=== PATIENT | female | born 1965 | race Caucasian/White ===

== ENCOUNTER → 2023-06-30 15:28 | Outpatient (REF) | payer BC, SELFPAY | LOC: WDC 15:28 | PROVIDERS: ATTENDING PHYSICIAN Obstetrics & Gynecology; FAMILY PHYSICIAN Family Medicine | DX: Z12.31 Encounter for screening mammogram for malignant neoplasm of breast (principal) | CPT/HCPCS: 77063; 77067 ==

== ENCOUNTER 2024-03-16 06:39 | Emergency (ER) | payer BC, SELFPAY ==
[2024-03-16 06:40] VITALS: BMI 24.1
[2024-03-16 06:41] VITALS: BP 148/91
[2024-03-16 07:04] VITALS: BP 136/85
--- NOTE | 2024-03-16 07:30 | ED.GENMED ---
History of Present Illness
General
Chief Complaint: Headache
Source: patient
Exam Limitations: none
Time Seen by Provider: 03/16/24 07:15
Nursing documentation reviewed up to this point in time: agreed with
History of Present Illness
History of Present Illness:
58-year-old female with history of migraines presents stating at 1 AM she awakened with one of her typical migraines starting in the posterior aspect of her head and wrapping up and around the top of her head to her right eye. She has photophobia
and nausea but has not vomited. She has maxed out on her migraine medications taking rizatriptan at 1 AM and 3 AM and butyl acetaminophen with caffeine at 2 AM. No recent head injury. she has been in ED before for this and states Toradol and
Compazine helped. feels nauseous but no vomiting and has been drinking well. Denies change in vision.
Past History
Past History
ED Past Medical History: Psychiatric (Anxiety) and Other (Chronic headaches, ulcerative colitis, migraine headaches)
ED Past Surgical History: , Gynecological and Orthopedic
Social History
Tobacco: Non-smoker
Alcohol: Occasional
Drug: None
Personal:
Living: with family
Employment: Employed
Family History
Family History: Hypertension
Review of Systems
Review of Systems
Allergies reviewed?: Yes
All Other Systems: ROS reviewed and negative except as documented in HPI and ROS
Constitutional: Denies fever
Respiratory: Denies trouble breathing
Cardiac: Denies chest pain
ABD/GI: Reports nausea; Denies abdominal pain, vomiting or diarrhea
Musculoskeletal: Reports no symptoms
Skin: Reports no symptoms
Neurological: Reports headache; Denies dizzy, weakness or numbness
Phy Exam
Physical Exam
Physical Exam:
GENERAL: No acute distress. A&Ox3.
CONSTITUTIONAL: Afebrile.
EYES: PERRL, conjunctivae normal
Neck: Supple
ENMT: moist mucus membranes, Pharynx nl
RESPIRATORY: Regular respirations, nonlabored, lungs clear.
CARDIOVASCULAR: Regular rate and rhythm, no murmurs, no rubs.
GI: Soft, nontender, normal BS
MUSCULOSKELETAL: Moves with ease. Well perfused.
SKIN: Warm, dry, pink
PSYCH: Normal mood and affect. Well kept, interactive and appropriate
NEUROLOGIC: Awake, alert and oriented. Cranial nerves II through XII intact. Cerebellum intact. No focal neurological deficits
Course
Orders/Labs/Results
Orders:
Orders
03/16/24 07:29
Diphenhydramine [Benadryl] 25 mg IV NOW STA
Ondansetron Orally Disint [Zofran Odt (Orally Disintegrating)] 4 mg PO NOW STA
Prochlorperazine [Compazine] 10 mg IV NOW STA
03/16/24 07:31
Ketorolac [Toradol] 15 mg IV NOW STA
Vital Signs
Initial and Last Documented VS:
Initial Vital Signs
Temp Pulse Resp BP Pulse Ox
95.3 F L 70 18 148/91 96
03/16/24 06:41 03/16/24 06:41 03/16/24 06:41 03/16/24 06:41 03/16/24 06:41
Last Documented Vital Signs
Temp Pulse Resp BP Pulse Ox
95.3 F L 65 16 135/65 98
03/16/24 06:41 03/16/24 09:03 03/16/24 09:03 03/16/24 09:03 03/16/24 09:00
MDM/Problems Addressed
Differential Diagnosis Includes:
migraine
MDM/Problems Addressed:
58-year-old female with history of migraines presents stating at 1 AM she awakened with one of her typical migraines starting in the posterior aspect of her head and wrapping up and around the top of her head to her right eye. She has photophobia
and nausea but has not vomited. She has maxed out on her migraine medications taking rizatriptan at 1 AM and 3 AM and butyl acetaminophen with caffeine at 2 AM. No recent head injury. she has been in ED before for this and states Toradol and
Compazine helped. feels nauseous but no vomiting and has been drinking well. Denies change in vision.
Neuro exam unremarkable
9:25 a.m.
Pt feeling 'so much better' ambulating in room, wants to go home.
*Critical Care Note
Total Time (30-74mins, 75-104mins- exclusive of procedures): Not Applicable
ED Attending Note
-
Portions of this chart may have been created with voice recognition software.� Occasional wrong word or��sound alike� substitutions may have occurred due to the inherent limitations of voice recognition software.
Discharge Plan
Departure
Patient Disposition: Home (Routine Discharge)
Date of Disposition: 03/16/24
Time of Disposition: 09:31
Patient with high blood pressure during this ER visit?: No
Condition: Good
Discharge Problem:
Headache, migraine
Instructions: Migraines (DC)
Prescriptions:
No Action
rizatriptan [Maxalt] 10 MG tablet
10 mg PO PRN PRN (Reason: migraine symptoms)
mesalamine [Lialda] 1.2 GM tablet,delayed release (DR/EC)
1.2 g PO DAILY
alprazolam 0.5 MG tablet
0.5 mg PO QPM
mupirocin 1 APPLIC ointment
1 applic intranasal BID
sennosides [senna] 1 TABLET tablet
2 tab PO BID 0RF
acetaminophen 325 MG tablet
650 mg PO Q4HPRN PRN (Reason: for mild pain or fever >100.4F) 0RF
hydrocodone-acetaminophen 1 TABLET tablet
1 - 2 tab PO Q4HPRN PRN (Reason: pain) Qty: 60 0RF
aspirin 81 MG tablet,delayed release (DR/EC)
81 mg PO DAILY 0RF
magnesium hydroxide 30 ML suspension
30 ml PO DAILYPRN PRN (Reason: constipation) 0RF
docusate sodium 100 MG capsule
100 mg PO BID 0RF
alum-mag hydroxide-simeth [Mag-Al Plus] 30 ML suspension
30 ml PO Q4HPRN PRN (Reason: INDIGESTION) 0RF
ondansetron 4 MG tablet,disintegrating
4 - 8 mg PO QIDPRN PRN (Reason: nausea/vomiting) Qty: 20 0RF
Referrals:
Andre Kincaid MD [Family Provider] - As needed
Interventions
Interventions:
*Risk Screen - Suicide Last Done: 03/16/24 06:41
*General Assessment Last Done: 03/16/24 06:41
*Neglect/Abuse Screening Last Done: 03/16/24 06:41
*ED COVID-19 Vaccine History Last Done: 03/16/24 06:58
*Nursing Disposition Last Done: 03/16/24 09:58
ED- Neurological Assessment Last Done: 03/16/24 06:58
Discharge Date and Time
Discharge Date/Time: 03/16/24 09:58
Print Language: KOSOVAN
[2024-03-16] MEDS: COMPAZINE 10 MG IV (07:45)
[2024-03-16] MEDS: ZOFRAN ODT (ORALLY DISINTEGRATING) 4 MG PO (07:45)
[2024-03-16] MEDS: TORADOL 15 MG IV (07:45)
[2024-03-16] MEDS: BENADRYL 25 MG IV (07:46)
[2024-03-16 08:00] VITALS: BP 135/66
[2024-03-16 09:03] VITALS: BP 135/65
== END 2024-03-16 09:58 | disposition home or self-care (01) ==
LOC: EMR 06:39
PROVIDERS: EMERGENCY PHYSICIAN Student in an Organized Health Care Education/Training Program; FAMILY PHYSICIAN Family Medicine
DX: G43.909 Migraine, unspecified, not intractable, without status migrainosus (principal); F41.9 Anxiety disorder, unspecified; K51.90 Ulcerative colitis, unspecified, without complications; Z82.49 Family history of ischemic heart disease and other diseases of the circulatory system
CPT/HCPCS: 99283

== ENCOUNTER 2024-04-06 21:25 | Emergency (ER) | payer BC, SELFPAY ==
[2024-04-06 21:26] VITALS: BP 149/108
--- NOTE | 2024-04-06 22:40 | ED.GENMED ---
History of Present Illness
General
Chief Complaint: Headache
Source: patient and previous hospital records (ED visit last month, March 16 for similar complaint)
Exam Limitations: none
Time Seen by Provider: 04/06/24 22:26
Nursing documentation reviewed up to this point in time: agreed with
History of Present Illness
History of Present Illness:
This is a 58-year-old woman who has history of migraine headaches, maintained on daily Inderal for preventative measures and utilizes Maxalt as well as Fioricet for as needed migraine headaches.
She complains of typical migraine headache that initially began last night, resolved with a dose of Maxalt but then headache returned around 1 PM while at work and has been persistent without relief after an additional dose of Maxalt around 3 PM and
no relief with Fioricet which she took this evening. She does admit to nausea without vomiting, photophobia. Headache is primarily right hemispheric, typical for her migraines.
She presented to this ED March 16 with very similar migraine headache and was afforded relief with IV Toradol, Compazine, Benadryl. Prior to that ED visit her headaches have been very well-controlled with last ED visit for similar complaint 2016.
She does have a neurologist but admits to no recent visit as headaches have been well-controlled.
She did notice some nasal congestion earlier today but has not had a fever, no sore throat, no earache, no cough nor shortness of breath. She denies weakness or numbness, denies dizziness, no chest pain, no abdominal pain.
She has history of celiac disease, ulcerative colitis, follows with GI, well-controlled. Maintained on mesalamine. She has had no rectal bleeding.
Past History
Past History
ED Past Medical History: Psychiatric (Anxiety) and Other (Chronic headaches, ulcerative colitis, migraine headaches, celiac disease)
ED Past Surgical History: , Gynecological and Orthopedic
Social History
Tobacco: Non-smoker
Alcohol: Occasional
Drug: None
Personal:
Living: with family
Employment: Employed
Family History
Family History: Hypertension
Phy Exam
Physical Exam
Physical Exam:
GENERAL: 58-year-old woman appears her stated age, awake and alert, appears mildly uncomfortable related to headache but easily conversant.
EYE: pupils equal and reactive. Extraocular muscles intact. Anicteric
NECK: Supple, nontender, no meningismus, no significant adenopathy.
ENT: posterior pharynx is clear, oral mucosa is moist. TM clear b/l, nares have minimally boggy turbinates with scant clear rhinorrhea.
CARDIAC: Regular rate and rhythm. no murmur.
LUNGS: Clear breath sounds bilaterally, no acute respiratory distress, no wheezes/rales/rhonchi
ABDOMEN: Soft, nondistended, without focal tenderness, no r/g, normoactive BS.
NEUROLOGICAL: Alert and oriented x3, no focal neuro deficits. Gait is mejia and steady.
SKIN: Warm and dry, normal color, skin intact. No rash.
MUSCULOSKELETAL: No C/C/E. peripheral pulses are full and equal b/l. No palpable tenderness.
PSYCH: Normal and appropriate interaction.
Course
Orders/Labs/Results
Orders:
Orders
04/06/24 22:39
Diphenhydramine [Benadryl] 25 mg IV NOW STA
Ketorolac [Toradol] 30 mg IV NOW STA
Prochlorperazine [Compazine] 10 mg IV NOW STA
Vital Signs
Initial and Last Documented VS:
Initial Vital Signs
Temp Pulse Resp BP Pulse Ox
97.7 F 69 16 149/108 98
04/06/24 21:26 04/06/24 21:26 04/06/24 21:26 04/06/24 21:26 04/06/24 21:26
Last Documented Vital Signs
Temp Pulse Resp BP Pulse Ox
97.7 F 69 16 149/108 98
04/06/24 21:26 04/06/24 21:26 04/06/24 21:26 04/06/24 21:26 04/06/24 21:26
MDM/Problems Addressed
Differential Diagnosis Includes:
Patient presents with typical migraine headache. Initially relieved with abortive measures, Maxalt but headache has since returned today, unrelieved with her typical abortive measures.
She does note some nasal congestion this afternoon which overall has not improved but no other associated symptoms, no fever, no cough and nothing on exam to suggest acute bacterial sinusitis nor acute URI.
History of ulcerative colitis, celiac disease. Overall stable without recent flare. No abdominal pain. Denies rectal bleeding. Generally avoids NSAIDs but tolerates sporadic doses of Toradol without adverse effects.
Has done well previously with IV Compazine, Toradol, Benadryl.
Overall appears euvolemic, does note some nausea without vomiting. Due to critical IV shortage will hold off on IV fluids for now.
No neurodeficits, no red flags in history nor exam. No indication for imaging nor laboratory studies.
Chronic conditions affecting care: Other (Ulcerative colitis, migraine headaches)
*Pulse Oximetry
Patient hypoxic: no
*Critical Care Note
Total Time (30-74mins, 75-104mins- exclusive of procedures): Not Applicable
Update Note
Update Note:
04/07/2024 0035 AM
Patient feeling markedly improved with complete resolution of migraine headache. No further nausea. Tolerating oral fluids.
Will give an IV dose of Decadron to hopefully prevent rebound headache phenomenon.
She does have some mild nasal congestion which may be seasonal in nature and recommend she initiated daily steroid nasal spray such as Flonase or Nasonex.
As this is her second migraine headache in less than a month recommend she touch base with her neurologist for follow-up.
ED Attending Note
-
Portions of this chart may have been created with voice recognition software.� Occasional wrong word or��sound alike� substitutions may have occurred due to the inherent limitations of voice recognition software.
Discharge Plan
Departure
Patient Disposition: Home (Routine Discharge)
Date of Disposition: 04/07/24
Time of Disposition: 00:37
Patient with high blood pressure during this ER visit?: No
Condition: Good
Discharge Problem:
ACUTE MIGRAINE HEADACHE
Instructions: Migraines (DC)
Prescriptions:
No Action
rizatriptan [Maxalt] 10 MG tablet
10 mg PO PRN PRN (Reason: migraine symptoms)
mesalamine [Lialda] 1.2 GM tablet,delayed release (DR/EC)
1.2 g PO DAILY
alprazolam 0.5 MG tablet
0.5 mg PO QPM
mupirocin 1 APPLIC ointment
1 applic intranasal BID
sennosides [senna] 1 TABLET tablet
2 tab PO BID 0RF
acetaminophen 325 MG tablet
650 mg PO Q4HPRN PRN (Reason: for mild pain or fever >100.4F) 0RF
hydrocodone-acetaminophen 1 TABLET tablet
1 - 2 tab PO Q4HPRN PRN (Reason: pain) Qty: 60 0RF
aspirin 81 MG tablet,delayed release (DR/EC)
81 mg PO DAILY 0RF
magnesium hydroxide 30 ML suspension
30 ml PO DAILYPRN PRN (Reason: constipation) 0RF
docusate sodium 100 MG capsule
100 mg PO BID 0RF
alum-mag hydroxide-simeth [Mag-Al Plus] 30 ML suspension
30 ml PO Q4HPRN PRN (Reason: INDIGESTION) 0RF
ondansetron 4 MG tablet,disintegrating
4 - 8 mg PO QIDPRN PRN (Reason: nausea/vomiting) Qty: 20 0RF
Referrals:
UNKNOWN - PT DOES,NOT KNOW [Unknown Provider] -
Activity Restrictions/Additional Instructions:
Start a daily steroid nasal spray such as Flonase or Nasonex, 2 sprays each nostril once daily.
Stay well-hydrated on a daily basis.
Try to get a good night sleep on a daily basis.
Touch base with your neurologist for follow-up.
Interventions
Interventions:
*Risk Screen - Suicide Last Done: 04/06/24 21:26
*Neglect/Abuse Screening Last Done: 04/06/24 21:26
ED- Neurological Assessment Last Done: 04/06/24 23:00
Discharge Date and Time
Print Language: LIBYAN
[2024-04-06] MEDS: BENADRYL 25 MG IV (22:58)
[2024-04-06] MEDS: TORADOL 30 MG IV (22:59)
[2024-04-06] MEDS: COMPAZINE 10 MG IV (22:59)
[2024-04-07] MEDS: DECADRON 10 MG IV (00:55)
[2024-04-07 00:58] VITALS: BP 144/86
== END 2024-04-07 01:04 | disposition home or self-care (01) ==
LOC: EMR 21:25
PROVIDERS: EMERGENCY PHYSICIAN Emergency Medicine; FAMILY PHYSICIAN Family Medicine
DX: G43.909 Migraine, unspecified, not intractable, without status migrainosus (principal); Z87.19 Personal history of other diseases of the digestive system
CPT/HCPCS: 96374; 96375; 99284